=== PATIENT | female | born 2000 | race Caucasian/White ===

== ENCOUNTER 2018-11-19 16:35 | Outpatient (CLI) | payer OTHER ==
[~2018-11-19] VITALS: Ht 162.6 cm; Wt 86.8 kg
[2018-11-19 17:07] VITALS: Ht 162.6 cm; Wt 86.8 kg
[2018-11-19] MEDS ORDERED: PREN-6 PO (19:14)
--- NOTE | 2018-11-19 19:18 | PN ---
Triage Information Date/Time Reason for visit: Abd/pelvic pain Weeks of Gestation 29 weeks /Para Diabetes: none Hypertention: none Objective Heart Rate: 130's Heart Rate Comments Reactive Contractions: None Results/Medications Results 24 hrs Laboratory Tests Test 11/19/18 17:30 11/19/18 18:05 Urine Color YELLOW Urine Clarity SLIGHTLY CLOUDY A Urine pH 6.0 Urine Specific [place] 1.024 Urine Ketones NEGATIVE Urine Nitrite NEGATIVE Urine Bilirubin NEGATIVE Urine Urobilinogen NEGATIVE Urine Leukocyte Esterase 1+ H Urine Microscopic RBC 1 Urine Microscopic WBC 3 Urine Squamous Epithelial Cells MODERATE Urine Bacteria FEW A Urine Hemoglobin 1+ H Urine Glucose NEGATIVE Urine Total Protein NEGATIVE Fibronectin NEGATIVE Imaging Results Cervical length normal BPP 01/23 Disposition: Discharge Assessment/Plan No sign of labor Follow up with Dr Chavez for urine culture on 11/20/2018. DIPTI ROSS MD Nov 19, 2018 19:18
--- NOTE | 2018-11-19 19:23 | TRIAGE ---
OB Triage Datetime Report Generated by CPN: 11/19/2018 19:22 Datetime: 11/19/2018 19:00 Labor Evaluation Frequency: OCC Monitor Mode: External Quality: Mild Pattern: Normal: <= 5 Contractions in 10 Minutes Resting Tone [place]: Relaxed Heart Rate FHR Baseline Rate: 140 Monitor Mode: External US FHR Baseline Changes: No Baseline Change Variability: Moderate 6-25 bpm Accelerations: 15X15 Decelerations: None Category: Category I Pain Assessment Pain Scale: 6 Pain Presence: Intermittent Pain Type: Ache Pain Location: Abdomen; Back Pain Goal: 2 Pain Assessment Comments: pain with repositioning in bed Datetime: 11/19/2018 18:00 Labor Evaluation Frequency: Irregular Monitor Mode: External Quality: Mild Pattern: Normal: <= 5 Contractions in 10 Minutes Resting Tone [place]: Relaxed Heart Rate FHR Baseline Rate: 140 Monitor Mode: External US FHR Baseline Changes: No Baseline Change Variability: Moderate 6-25 bpm Accelerations: 15X15 Decelerations: None Category: Category I Pain Assessment Pain Scale: 8 Pain Presence: Intermittent Pain Type: Ache Pain Goal: 2 Pain Assessment Comments: pain with walking Datetime: 11/19/2018 17:24 Time of Arrival: 11/19/2018 16:29 EGA: 29.3 Arrived By: Ambulatory Arrived From: Home Chief Complaint: decreased movement, pelvic pain/pressure while walking Movement: Absent Contractions: Denies/Absent Rupture of Membranes: Denies Vaginal Bleeding: Normal Show Vaginal Discharge: Denies Recent Sexual Intercouse: Denies Abdominal Trauma: Not Applicable Patient Complaints: Other Initial Plan: NST, BPP, CL, UA Datetime: 11/19/2018 17:18 Assessment Type: Triage Maternal Assessment Level of Consciousness: Fully Conscious DTR's/Clonus: DTRs 2+; No Clonus Headache: Denies Blurred Vision: No Respiratory Effort: Unlabored; Regular Rhythm; Equal Expansion Breath Sounds, Left: Clear and Equal Breath Sounds, Right: Clear and Equal Nausea/Vomiting: Denies RUQ Epigastric Pain: Denies Lower Extremities Edema: Bilateral Lower Extremities Degree: Trace Upper Extremities Edema: None Degree: None Facial Edema: None Fall Risk Assessment History of Falling: (0) No Secondary Diagnosis: (0) No Ambulatory Aid: (0) Bedrest/Nurse Assist IV Therapy: (0) No Gait: (0) Normal/Bedrest/Immobile Mental Status: (0) Oriented to Own Ability Fall Score: 0 Fall Risk Score Definition: No Risk: No action required Pain Assessment Pain Scale: 8 Pain Presence: Intermittent Pain Type: Ache Pain Goal: 3 Pain Assessment Comments: Pt states she has ache in pelvic area while she is walking only, no pain while she is laying down or sitting Datetime: 11/19/2018 17:02 Stage of : OB Triage
== END 2018-11-19 19:30 | disposition home or self-care (01) ==
LOC: L-D 16:35 → OBT 16:35
PROVIDERS: ATTEND Obstetrics & Gynecology
DX: O26.893 Other specified pregnancy related conditions, third trimester (principal); Z3A.29 29 weeks gestation of pregnancy; R10.2 Pelvic and perineal pain
CPT/HCPCS: 76817; 76818; 81001; 82731; 87086; Z7500; G0463

== ENCOUNTER 2019-01-07 16:37 | Outpatient (CLI) | payer OTHER ==
[~2019-01-07] VITALS: Ht 165.1 cm; Wt 89.9 kg
[~2019-01-07 16:37] MED LIST: PREN-6 PO
[2019-01-07 17:25] VITALS: Ht 165.1 cm; Wt 89.9 kg
[2019-01-07 17:26] VITALS: BP 127/69; PULSE 95; RESP 17
--- NOTE | 2019-01-07 22:38 | TRIAGE ---
OB Triage Datetime Report Generated by CPN: 01/07/2019 22:38 Datetime: 01/07/2019 18:15 Vaginal Exam Dilatation (cms): 0.0 Effacement (%): 40 Station: -4 Exam By: S. DELVIN Datetime: 01/07/2019 17:21 Assessment Type: Triage Maternal Assessment Level of Consciousness: Keenly Alert, Responsive DTR's/Clonus: DTRs 2+; No Clonus Headache: Denies Blurred Vision: No Respiratory Effort: Unlabored; Regular Rhythm; Equal Expansion Breath Sounds, Left: Clear and Equal Breath Sounds, Right: Clear and Equal Nausea/Vomiting: Denies RUQ Epigastric Pain: Denies Lower Extremities Edema: None Degree: None Upper Extremities Edema: None Degree: None Facial Edema: None Fall Risk Assessment History of Falling: (0) No Secondary Diagnosis: (0) No Ambulatory Aid: (0) Bedrest/Nurse Assist IV Therapy: (0) No Gait: (0) Normal/Bedrest/Immobile Mental Status: (0) Oriented to Own Ability Fall Score: 0 Fall Risk Score Definition: No Risk: No action required Datetime: 01/07/2019 17:18 Stage of : OB Triage Labor Evaluation Frequency: NONE Monitor Mode: External Resting Tone [place]: Relaxed Heart Rate FHR Baseline Rate: 165 Monitor Mode: External US FHR Baseline Changes: No Baseline Change Variability: Moderate 6-25 bpm Accelerations: 15X15 Decelerations: None Category: Category I Datetime: 01/07/2019 17:14 Time of Arrival: 01/07/2019 17:10 EGA: 36.3 Arrived By: Ambulance Arrived From: Home Chief Complaint: C/O ABDOMINAL PAIN AND VAG PRESSURE SINCE THIS MORNING. Movement: Present Contractions: Denies/Absent Rupture of Membranes: Denies Vaginal Bleeding: None Vaginal Discharge: Denies Recent Sexual Intercouse: Denies Abdominal Trauma: Not Applicable Time Provider Notified: 01/07/2019 18:54 Provider Notified: Dr Hooks Initial Plan: NST, BPP UA, PO HYDRATION, URINE CULTURE Datetime: 11/19/2018 17:24 EGA: 29.3 Time Provider Notified: 11/19/2018 17:36 Provider Notified: Scott Datetime: 11/19/2018 17:18 Fall Score: 0 Fall Risk Score Definition: No Risk: No action required
--- NOTE | 2019-01-07 23:52 | PN ---
Triage Information Date/Time 01/07/19 Reason for visit: Uterine contractions Weeks of Gestation 36w3d /Para A1 Diabetes: none Hypertention: none Additional information vaginal pressure sensation pelvic pain constant alleviated by resting currently no pain Objective Vital Signs Date Temp Pulse Resp B/P (MAP) Pulse Ox O2 O2 Flow FiO2 Time Delivery Rate 01/07/19 98.4 95 17 127/69 Room Air 17:26 (88) Heart Rate: 150's (160) Heart Rate Comments CAT I Contractions: None Exam VE closed/50/-4 Results/Medications Results 24 hrs Laboratory Tests Test 01/07/19 19:10 Urine Color YELLOW Urine Clarity CLEAR Urine pH 7.0 Urine Specific [place] 1.011 Urine Ketones NEGATIVE Urine Nitrite NEGATIVE Urine Bilirubin NEGATIVE Urine Urobilinogen NEGATIVE Urine Leukocyte Esterase TRACE A Urine Microscopic RBC 0 Urine Microscopic WBC 1 Urine Squamous Epithelial Cells FEW Urine Bacteria FEW A Urine Hemoglobin NEGATIVE Urine Glucose NEGATIVE Urine Total Protein NEGATIVE Imaging Results BPP 8/8 JAMAL 16.3 Disposition: Discharge Assessment/Plan A IUP 36w3d NIL ligament pain P discharge home with routine labor instructions MEGHAN LOPEZ MD Jan 07, 2019 23:52
== END 2019-01-07 22:15 | disposition home or self-care (01) ==
LOC: OBT 16:37 → L-D 16:38 → OBT 22:15
PROVIDERS: ATTEND Obstetrics & Gynecology
DX: O62.9 Abnormality of forces of labor, unspecified (principal); Z3A.36 36 weeks gestation of pregnancy
CPT/HCPCS: 76818; 81001; 87086; Z7500; G0463